=== PATIENT | female | born 1975 | race Hispanic/Latino ===

== ENCOUNTER 2018-06-28 19:49 | Emergency (ER) | payer SELFPAY ==
[~2018-06-28] VITALS: Ht 167.6 cm; Wt 68.0 kg
[2018-06-28] MEDS ORDERED: SODIUM CHLORIDE 0.9% 1000ML 1,000 ML IV STA (20:18)
[2018-06-28] MEDS ORDERED: CEFTRIAXONE SOD 1 GM/NS 50 ML 50 ML IV ONE (20:30)
[2018-06-28] MEDS ORDERED: ACETAMINOPHEN 325 MG TAB PO ONE (20:30)
[2018-06-28] MEDS ORDERED: CEFTRIAXONE SOD 1 GM VIAL IV ONE (20:30)
[2018-06-28 20:36] LABS: BASOPHILS % 0.1 % (0.0-1.0); EOSINOPHILS % 0.3 % (0.0-6.0); HEMATOCRIT 40.6 % (34.2-44.1); HEMOGLOBIN 13.7 g/dL (12.0-16.0); LYMPHOCYTES # (AUTO) 0.8 (1.0-3.2); LYMPHOCYTES % 9.1 % (18.0-39.1); MEAN CORPUSCULAR HEMOGLOBIN 29.6 pg (28-32); MEAN CORPUSCULAR HGB CONC 33.7 g/dL (31-35); MEAN CORPUSCULAR VOLUME 87.7 fL (81-99); MONOCYTES # (AUTO) 0.4 (0.2-0.8); MONOCYTES % 4.3 % (4.4-11.3); NEUTROPHILS # (AUTO) 7.5 (2.1-6.9); NEUTROPHILS % 85.9 % (38.7-80.0); PLATELET COUNT 242 x10e3/uL (140-360); RED BLOOD COUNT 4.63 x10e6/uL (3.6-5.1); RED CELL DISTRIBUTION WIDTH 13.2 % (11.7-14.4)
[2018-06-28 20:41] LABS: BILIRUBIN,URINE NEGATIVE (NEGATIVE); CLARITY,URINE CLEAR (CLEAR); COLOR,URINE YELLOW (YELLOW); KETONES,URINE NEGATIVE (NEGATIVE); LEUKOCYTE ESTERASE ,URINE TRACE (NEGATIVE); NITRITE,URINE NEGATIVE (NEGATIVE); PROTEIN,URINE DIPSTICK NEGATIVE (NEGATIVE); URINE UROBILINOGEN 1 mg/dL (0.2 - 1)
[2018-06-28 20:48] LABS: BACTERIA,URINE FEW /HPF; EPITHELIAL CELLS,URINE MANY /LPF; WBC,URINE (MAN) 0-5 /HPF (0-5)
[2018-06-28 21:01] LABS: ALANINE AMINOTRANSFERASE 72 IU/L (0-55); ALBUMIN 3.6 g/dL (3.5-5.0); ALBUMIN/GLOBULIN RATIO 0.9 (0.8-2.0); ALKALINE PHOSPHATASE 73 IU/L (40-150); ANION GAP 10.7 mmol/L (8-16); BLOOD UREA NITROGEN 9 mg/dL (7-26); BUN/CREATININE RATIO 13 (6-25); CALCIUM 8.8 mg/dL (8.4-10.2); CARBON DIOXIDE 23 mmol/L (22-29); CHLORIDE 103 mmol/L (98-107); CREATININE, SERUM 0.69 mg/dL (0.57-1.11); EST GLOMERULAR FILTRATION RATE > 60 ML/MIN (60-); GLUCOSE 108 mg/dL (74-118); POTASSIUM 3.7 mmol/L (3.5-5.1); SODIUM 133 mmol/L (136-145)
--- NOTE | 2018-06-28 21:32 | Diagnostic Imaging Report ---
EXAMINATION: PA and lateral views of the chest. COMPARISON: None CLINICAL HISTORY: Stomach pain DISCUSSION: Lines/tubes: None. Lungs: The lungs are well inflated and clear. There is no evidence of pneumonia or pulmonary edema. Pleura: There is no pleural effusion or pneumothorax. Elevation of the right hemidiaphragm. Heart and mediastinum: Cardiomediastinal silhouette is unremarkable. Pulmonary vasculature is normal. Bones and soft tissues: No acute bony abnormalities. IMPRESSION: Elevation of the right hemidiaphragm, without acute cardiopulmonary abnormalities. . Signed by: Dr. Tristen Cobos M.D. on 06/28/2018 9:28 PM
[2018-06-28] MEDS: SODIUM CHLORIDE 0.9% 1000ML 1,000 ML IV SCH ×2 (21:35→23:21)
[2018-06-28] MEDS ORDERED: SODIUM CHLORIDE 0.9% 50ML 50 ML ONE (23:57)
[2018-06-28] MEDS ORDERED: IOPAMIDOL 370 MG/ML 200 ML INFUS..BTL INJ ONE (23:57)
--- NOTE | 2018-06-29 00:35 | Diagnostic Imaging Report ---
EXAMINATION: CT of the abdomen and pelvis with contrast. TECHNIQUE: Spiral CT images of the abdomen and pelvis were performed from the lung bases to the lesser trochanters after the intravenous administration of 100 cc of Isovue 370 and the oral administration of water. Coronal and sagittal reformatted images were obtained. COMPARISON: None. CLINICAL HISTORY:Left lower quadrant pain, abdominal pain for 3 days DISCUSSION: ABDOMEN/PELVIS: LOWER THORAX:Linear subsegmental atelectasis versus scarring in the posterior right lower lobe. Lung bases are otherwise clear. HEPATOBILIARY: Diffuse hepatic steatosis. No focal hepatic lesions. No intra or extrahepatic biliary ductal dilation. GALLBLADDER: No radio-opaque stones or sludge. No wall thickening. SPLEEN: No splenomegaly. PANCREAS: No focal masses or ductal dilatation. ADRENALS: No adrenal nodules. KIDNEYS/URETERS: No hydronephrosis, stones, or solid mass lesions. PELVIC ORGANS/BLADDER: Bladder is unremarkable. Anteverted uterus, without focal lesions. No adnexal masses. Linear hyperdensities anterior to the uterus may represent tubal ligation clips (series 2, image 76). PERITONEUM/RETROPERITONEUM: No free air or fluid. LYMPH NODES: No intra-abdominal, retroperitoneal, pelvic or inguinal lymphadenopathy. VESSELS: The celiac trunk,superior and inferior mesenteric and bilateral renal arteries are patent The portal, superior mesenteric and splenic veins are patent. GI TRACT: Stomach is moderately distended. No wall thickening. No small or large bowel dilation or evidence of obstruction. No significant diverticulosis. No pericolonic inflammatory changes. Appendix is well identified and normal in caliber. BONES AND SOFT TISSUE: No aggressive lytic lesions. 2.5 cm low density structure in the subcutaneous tissues of the right gluteal region may represent an injection site. There are scattered 4-5 mm focal areas of stranding in the subcutaneous tissues of the lateral right and left pelvis (for example series 2, image 71), which may also represent injection sites. IMPRESSION: 1. No acute abdominopelvic abnormalities. Specifically, no acute abnormal findings in the left lower quadrant to explain the patient's pain. 2. Moderately distended stomach, however, no definite evidence of obstruction. No bowel dilation. 3. Diffuse hepatic steatosis. Signed by: Dr. Tristen Cobos M.D. on 06/29/2018 12:32 AM
[2018-06-29] MEDS ORDERED: MACROBID 100 M100 MG PO (01:35)
[2018-06-29 03:11] VITALS: BP 96/69
== END 2018-06-29 03:12 | disposition home or self-care (01) ==
LOC: ER 19:49
DX: R10.32 Left lower quadrant pain (principal); R11.0 Nausea; R19.7 Diarrhea, unspecified; N30.90 Cystitis, unspecified without hematuria
CPT/HCPCS: 36415; 71046; 74177; 80053; 81001; 83605; 85025; 87040; 99284; J0696; J7030; Q9967

== ENCOUNTER 2020-10-30 10:41 | Emergency (ER) | payer SELFPAY ==
[~2020-10-30] VITALS: Ht 165.1 cm; Wt 72.6 kg
[~2020-10-30 10:41] MED LIST: MACROBID 100 M100 MG PO
[2020-10-30 11:06] LABS: BASOPHILS % 0.4 % (0.0-1.0); EOSINOPHILS # (AUTO) 0.1 (0.0-0.4); EOSINOPHILS % 0.7 % (0.0-6.0); HEMATOCRIT 40.8 % (34.2-44.1); HEMOGLOBIN 13.4 g/dL (12.0-16.0); LYMPHOCYTES # (AUTO) 2.3 (1.0-3.2); LYMPHOCYTES % 27.4 % (18.0-39.1); MEAN CORPUSCULAR HEMOGLOBIN 29.1 pg (28-32); MEAN CORPUSCULAR HGB CONC 32.8 g/dL (31-35); MEAN CORPUSCULAR VOLUME 88.5 fL (81-99); MONOCYTES # (AUTO) 0.7 (0.2-0.8); MONOCYTES % 7.9 % (4.4-11.3); NEUTROPHILS # (AUTO) 5.3 (2.1-6.9); NEUTROPHILS % 63.4 % (38.7-80.0); PLATELET COUNT 226 x10e3/uL (140-360); RED BLOOD COUNT 4.61 x10e6/uL (3.6-5.1); RED CELL DISTRIBUTION WIDTH 13.3 % (11.7-14.4)
[2020-10-30 11:34] LABS: ALBUMIN 3.6 g/dL (3.5-5.0); ALBUMIN/GLOBULIN RATIO 0.9 (0.8-2.0); ANION GAP 10.8 mmol/L (8-16); CREATININE, SERUM 0.64 mg/dL (0.57-1.11); POTASSIUM 3.8 mmol/L (3.5-5.1)
[2020-10-30 11:47] LABS: CLARITY,URINE CLEAR (CLEAR); COLOR,URINE YELLOW (YELLOW); KETONES,URINE NEGATIVE (NEGATIVE); LEUKOCYTE ESTERASE ,URINE NEGATIVE (NEGATIVE); NITRITE,URINE NEGATIVE (NEGATIVE); PROTEIN,URINE DIPSTICK NEGATIVE (NEGATIVE)
[2020-10-30 11:48] LABS: URINE UROBILINOGEN 0.2 mg/dL (0.2 - 1)
[2020-10-30] MEDS ORDERED: SODIUM CHLORIDE 0.9% 50ML 50 ML ONE (11:54)
[2020-10-30] MEDS ORDERED: IOPAMIDOL 370 MG/ML 200 ML INFUS..BTL INJ ONE (11:55)
[2020-10-30 12:13] LABS: BACTERIA,URINE MODERATE /HPF; EPITHELIAL CELLS,URINE MODERATE /LPF; RBC,URINE 0-5 /HPF (0-5); WBC,URINE (MAN) 0-5 /HPF (0-5)
[2020-10-30] MEDS ORDERED: ZOFRAN4 MG SL (13:04)
[2020-10-30] MEDS ORDERED: DICYCLOMINE HCL20 MG PO (13:04)
== END 2020-10-30 13:30 | disposition home or self-care (01) ==
LOC: ER 10:54
DX: R10.32 Left lower quadrant pain (principal); M25.512 Pain in left shoulder
CPT/HCPCS: 36415; 71045; 74177; 80053; 81001; 84702; 85025; 99284; Q9967